=== PATIENT | female | born 1985 | race Caucasian/White ===

== ENCOUNTER 2017-08-04 11:56 | Emergency (ER) | payer OTHER ==
[~2017-08-04] VITALS: Ht 175.3 cm; Wt 68.0 kg
[~2017-08-04 11:56] MED LIST: ALBUTEROL; AMOX500C2 PO; FLUT9.9S NASAL; IBUP800T25 PO
[2017-08-04 12:53] VITALS: Ht 175.3 cm; Wt 68.0 kg
--- NOTE | 2017-08-04 13:04 | ERD ---
ER Documentation Chief Complaint Chief Complaint pt bib self with c/o abd pain, nausea, loss of appetite for months HPI Patient presents with a chief complaints of upper abdominal pain times months. No current pain. Has lost appetite due to pain. Sometimes radiates to the back. Also complains of urinary frequency and dysuria. Denies any chest pain, shortness of breath, fever, chills, nausea, vomiting, diarrhea, constipation, melena or hematuria. Patient has taken Tylenol to relieve the symptoms without relief. Patient has no other complaints and describes no other associated manifestations. Nursing notes have been reviewed and are consistent with history given. ROS All systems reviewed and are negative except as per history of present illness. Medications Home Meds Active Scripts Ciprofloxacin Hcl* (Ciprofloxacin Hcl*) 500 Mg Tablet, 500 MG PO BID for 5 Days , TAB Prov:JUVE PRICE PA-C 08/04/17 Ibuprofen* (Motrin*) 800 Mg Tab, 800 MG PO Q6H Y for PAIN, #30 TAB Prov:BOB CARLOS MD 12/20/15 Fluticasone Propionate (Flonase Allergy Relief) 9.9 Ml [place].susp, 1 SPRAY NASAL BID for 7 Days, BOTTLE TO EACH NOSTRIL Prov:BOB CARLOS MD 12/20/15 Amoxicillin* (Amoxicillin*) 500 Mg Cap, 500 MG PO TID for 7 Days, CAP Prov:BOB CARLOS MD 12/20/15 Reported Medications [Albuterol] No Conflict Check 11/17/09 Allergies Allergies: Coded Allergies: No Known Drug Allergies (Verified Allergy, Mild, 11/17/09) PMhx/Soc History of Surgery: Yes (LEFT LUNG REMOVAL 2004) Hx Neurological Disorder: No Hx Respiratory Disorders: Yes (LUNG CANCER; ASTHMA) Hx Cardiac Disorders: No Hx Miscellaneous Medical Probl: No Hx Alcohol Use: No Hx Substance Use: No Hx Tobacco Use: No Physical Exam Vitals Vital Signs Date Time Temp Pulse Resp B/P Pulse Ox O2 Delivery O2 Flow Rate FiO2 08/04/17 12:53 98.3 72 16 138/72 98 Physical Exam Const: Well-appearing healthy 31-year-old female in NAD Head: Atraumatic Eyes: Normal Conjunctiva ENT: Normal External Ears, Nose and Mouth. Neck: Full range of motion..~ No meningismus. Resp: Clear to auscultation bilaterally Cardio: Regular rate and rhythm, no murmurs Abd: Soft, non tender, non distended. Normal bowel sounds. Percussion unremarkable. Negative Parker sign. Negative psoas obturator's and Rovsing signs. Skin: No petechiae or rashes Back: No midline or flank tenderness Ext: No cyanosis, or edema Neur: Awake and alert Psych: Normal Mood and Affect Results 24 hrs Laboratory Tests Test 08/04/17 13:20 Bedside Urine pH (LAB) 5.5 Bedside Urine Protein (LAB) Negative Bedside Urine Glucose (UA) Negative Bedside Urine Ketones (LAB) Negative Bedside Urine Blood Negative Bedside Urine Nitrite (LAB) Negative Bedside Urine Leukocyte Esterase (L Trace Procedures/MDM 31-year-old female presents with epigastric pain worse with eating. No symptoms right now. Physical exam unremarkable. No medical conditions. Vaccination status up-to-date. Most likely diagnosis gastritis versus gastric ulcer versus GERD versus urinary tract infection. EKG was obtained to rule out ACS. EKG was read by me as normal rate, normal rhythm, no ST wave elevation or depression, no T-wave abnormalities, normal access, and good baseline. I have no suspicion for mesenteric ischemia, pancreatitis or other acute abdomen, ACS, pneumonia, pneumothorax, hemothorax, pericarditis, pulmonary embolism, or other cardiopulmonary pathology. Departure Diagnosis: Primary Impression: UTI (urinary tract infection) Urinary tract infection type: site unspecified Hematuria presence: without hematuria Qualified Code: N39.0 - Urinary tract infection without hematuria, site unspecified Condition: Stable Additional Instructions: Follow up with your PCP within the next 1-3 days for a more thorough evaluation and a possible referral to a specialist. Return the the emergency department immediately if symptoms worsen or change. If you have any questions regarding medications, ask your pharmacist or us before you leave. If any adverse reactions occur while taking your medications, discontinue the treatment and return to the emergency department immediately. Take your medications as directed, and complete the entire course of treatment. JUVE PRICE PA-C Aug 04, 2017 13:04
[2017-08-04 13:22] LABS: URINE BLOOD (Dip) POC Negative (NEGATIVE)
[2017-08-04] MEDS ORDERED: CIPR500T4 PO (13:57)
== END 2017-08-04 14:56 | disposition home or self-care (01) ==
LOC: FTE 11:56
DX: N39.0 Urinary tract infection, site not specified (principal); J45.909 Unspecified asthma, uncomplicated; R10.13 Epigastric pain; Z85.118 Personal history of other malignant neoplasm of bronchus and lung
CPT/HCPCS: 81003; Z7502